=== PATIENT | male | born 1990 | race Caucasian/White ===

== ENCOUNTER 2022-11-12 19:03 | Emergency (ER) | payer BC ==
[2022-11-12 19:31] VITALS: BP 143/93; PULSE 87
== END 2022-11-12 20:10 | disposition home or self-care (01) ==
LOC: LB.ED 19:03
DX: S89.92XA Unspecified injury of left lower leg, initial encounter (principal); Z88.1 Allergy status to other antibiotic agents; V86.92XA Unspecified occupant of snowmobile injured in nontraffic accident, initial encounter
CPT/HCPCS: 73562-LT; 99283

== ENCOUNTER 2024-06-25 08:06 | Emergency (ER) | payer OTHER ==
[2024-06-25] MEDS: Ketorolac 30 MG/ML SDV IM ONE (09:54)
[2024-06-25 10:08] LABS: APPEARANCE,URINE CLEAR (CLEAR); BILIRUBIN,URINE SMALL (NEGATIVE); COLOR,URINE OTHER; GLUCOSE,URINE NEGATIVE (NEGATIVE); KETONES,URINE TRACE mg/dL (NEGATIVE); LEUKOCYTE ESTERASE,URINE NEGATIVE (NEGATIVE); NITRITE,URINE NEGATIVE (NEGATIVE); OCCULT BLOOD,URINE NEGATIVE (NEGATIVE); PH,URINE 5.5 (5.0-8.0); PROTEIN,URINE NEGATIVE (NEGATIVE); UROBILINOGEN,URINE 0.2 E.U./dL (0.2-1.0)
[2024-06-25] MEDS: Ketorolac 30 MG/ML SDV ONE (10:51)
[2024-06-25 10:58] VITALS: BP 129/96; PULSE 70
== END 2024-06-25 11:00 | disposition home or self-care (01) ==
LOC: LB.ED 08:06
DX: S06.0X9A Concussion with loss of consciousness of unspecified duration, initial encounter (principal); S12.590A Other displaced fracture of sixth cervical vertebra, initial encounter for closed fracture; S29.012A Strain of muscle and tendon of back wall of thorax, initial encounter; I10 Essential (primary) hypertension; E66.9 Obesity, unspecified; Z88.8 Allergy status to other drugs, medicaments and biological substances; Z79.899 Other long term (current) drug therapy; Z87.891 Personal history of nicotine dependence; Z68.41 Body mass index [BMI] 40.0-44.9, adult; V57.5XXA Driver of pick-up truck or van injured in collision with fixed or stationary object in traffic accident, initial encounter
CPT/HCPCS: 70450; 71045; 72040; 72070; 72100; 81003; 96372; 99283; 99284; J1885